=== PATIENT | male | born 1940 | race Caucasian/White ===

== ENCOUNTER 2020-10-18 00:55 | Inpatient (IN) | payer MEDICARE, SELFPAY ==
[2020-10-18 01:24] LABS: Actual Bicarbonate (HCO3a) 22.1 mEq/L (22-28); Analyzer IN Cardio ER; Base Excess (BEa) -0.2 mEq/L (-2.0 to +3.0); CO2 Tension 29.4 mmHg (35.0-45.0); Calcium, Ionized (arterial) 1.14 mmol/L (1.12-1.30); Carboxyhemoglobin (COHb) 0.5 gm% (0.0-3.0); O2 Tension (PaO2), arterial 194.9 mmHg (> 70.0); Potassium - ABG Lab 3.62 mmol/L (3.70-5.30); pH, Arterial 7.49 (7.35-7.45)
[2020-10-18 01:25] LABS: Puncture Site LRA
[2020-10-18] MEDS ORDERED: fentaNYL Citrate/PF 2,000 MCG in Sodium Chloride 0.9% 60 ML IV SCH ×2 (01:30→03:45)
[2020-10-18 02:35] LABS: Bilirubin Negative (Negative); Blood, Urine Negative (Negative); Clarity Clear (Clear); Glucose, Urine (Dipstick) Normal (Negative); Ketone, Urine Trace mg/dL (Negative); Leukocyte Negative Leu/uL (Negative); Nitrite Negative (Negative); Protein, Urine (Dipstick) 20 mg/dL (Neg-Trace); Specific Gravity, Urine 1.045 (1.002-1.036); Urobilinogen Normal mg/dL (Less than 2); pH, Urine 7.5 (5.0-9.0)
[2020-10-18] MEDS ORDERED: Morphine 2 MG/ML VIAL SLOW IVP PRN (03:45)
[2020-10-18] MEDS ORDERED: Propofol 1,000 MG/100 ML VIAL IV PRN (03:45)
[2020-10-18] MEDS ORDERED: Propofol BOLUS 1,000 MG/100 ML VIAL IV PRN (03:45)
[2020-10-18] MEDS ORDERED: Fentanyl BOLUS 250 ML IVPB PRN (03:45)
[2020-10-18] MEDS ORDERED: DISCONTINUE PREVIOUS NARCOTIC PAIN MEDICATIONS AND BENZODIAZEPINES FS SCH (03:45)
[2020-10-18] MEDS ORDERED: Dextrose 5 % And 0.9 % NaCl 1,000 ML IV SCH (04:00)
[2020-10-18 04:15] LABS: SARS-CoV-2 NAA Rapid Test Not Detected (NotDetected)
[2020-10-18 05:10] VITALS: BMI 31.2
[2020-10-18 06:43] LABS: Cardiac Risk 3.3 (Less than 4.5)
[2020-10-18 07:47] LABS: Actual Bicarbonate (HCO3a) 23.8 mEq/L (22-28); Base Excess (BEa) -0.2 mEq/L (-2.0 to +3.0); CO2 Tension 36.9 mmHg (35.0-45.0); Calcium, Ionized (arterial) 1.18 mmol/L (1.12-1.30); Carboxyhemoglobin (COHb) 0.5 gm% (0.0-3.0); Hemoglobin (Hb) 13.3 g/dL (14.0-18.0); O2 Tension (PaO2), arterial 146.7 mmHg (> 70.0); Potassium - ABG Lab 3.44 mmol/L (3.70-5.30); pH, Arterial 7.43 (7.35-7.45)
[2020-10-18 07:48] LABS: ALV-art Gradient 163.675 mmHg (0-20); Puncture Site RRA
--- NOTE | 2020-10-18 07:57 | CT ---
PRELIMINARY REPORT/[facility]/EMERGENCY AFTER HOURS PROCEDURE: This report was discussed with Mervat Santoro RN by Tika Rodriguez on Oct 18, 2020 02:19:00 [employer] WORK[employer]. Addendum electronically signed by Tika Rodriguez on October 18, 2020 2:19:50 AM CUSTOM SHOP WORKER EXAM: CTA Head and Neck with Intravenous Contrast. CT Head without Contrast. CLINICAL HISTORY: THIS IS A STROKE TRANSFER FROM ANOTHER FACILITY. REPEATED SCANS PER NEUROLOGIST//ALL THE IMAGES ARE U NDER THE CTA ANGIO HEAD/ LEVEL 1 STROKE ACTIVATION PT DIAGNOSED WITH OCCULSIONS//PRESENTED INTUB ATED TECHNIQUE: Axial CTA images of the head and neck performed with intravenous contrast. MIP reconstructed images w ere created and reviewed. Axial computed tomography images of the head/brain performed without intravenous contrast. Note: Per PQRS, the description of internal carotid artery percent stenosis, including 0 percent or n ormal exam, is based on [place] Symptomatic Carotid Endarterectomy Trial (NASCET) criteria. CONTRAST: With; ISOVUE 370,100mL COMPARISON: None provided. FINDINGS: CT HEAD: BRAIN: No acute intraparenchymal hemorrhage. No mass lesion. No midline shift or extra-axial collection. 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 VENTRICLES: No hydrocephalus. ORBITS: The orbits are unremarkable. SINUSES AND MASTOIDS: The paranasal sinuses and mastoid air cells are clear. CTA NECK: COMMON CAROTID ARTERIES No significant stenosis. No dissection or occlusion. INTERNAL CAROTID ARTERIES No stenosis by NASCET criteria. No dissection or occlusion. VERTEBRAL ARTERIES There is absence of vertebral flow and the V1, V2, V3, and V4 segments of the left vertebral artery. The right vertebral artery is patent. CTA HEAD: ANTERIOR CEREBRAL ARTERIES No significant stenosis. No occlusion. No aneurysm. MIDDLE CEREBRAL ARTERIES No significant stenosis. No occlusion. No aneurysm. POSTERIOR CEREBRAL ARTERIES No significant stenosis. No occlusion. No aneurysm. BASILAR ARTERY No significant stenosis. No occlusion. No aneurysm. OTHER: SOFT TISSUES No acute finding. No masses or lymphadenopathy. BONES No acute osseous abnormality. Multilevel degenerative disc disease. IMPRESSION: Absence of arterial flow in the V1, V2, V3, and V4 segments of the left vertebral artery concerning f or occlusion. Geographic region of hypodensity in the left cerebellar hemisphere concerning for an acute infarction . ELECTRONICALLY SIGNED BY: Pj Jha MD Oct 18, 2020 2:14:56 AM CUSTOM SHOP WORKER This report is intended for review by the ordering physician only, in accordance of law. If you recei ve this report in error, please call [facility] at [phone]. FINAL REPORT CTA HEAD WITH AND WITHOUT CONTRAST CTA NECK WITH CONTRAST: Axial tomograms obtained through head with and without contrast. Postcontrast images obtained through the head and neck following angio protocol with multiplanar reconstruction and 3D postprocessing. FINDINGS: CT head without contrast shows asymmetric hypodensity in the left cerebellum as noted on the prelimin john report. CTA head shows patent intracranial internal carotid arteries, anterior cerebral arteries, middle cere bral arteries, and posterior cerebral arteries. There is occlusion of the left vertebral artery as noted on the preliminary report. I am in agreement with the preliminary report issued by [facility]. CTA NECK: Common carotid arteries and extracranial internal carotid arteries are patent. I am in agreement with the preliminary report issued by [facility]. POS: OFF
[2020-10-18] MEDS ORDERED: FLU VACC QS2020-21(65YR UP)/PF 240 MCG/0.7 ML SYRINGE IM ONE (09:00)
--- NOTE | 2020-10-18 09:35 | CON ---
DATE OF CONSULTATION: HISTORY OF PRESENT ILLNESS: A 80-year-old gentleman, intubated, on the vent. He was transferred from a tertiary hospital in [place] with an acute mental status change as outlined. 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 His CT head and neck did show a hyperdense area in the cerebellar area, consistent with infarct. I spoke to his granddaughter, they are from [place], states that he has been healthy except for history of hypertension. PAST MEDICAL HISTORY: Colon cancer, stopped treatment a year ago, is not in remission; history of prostate cancer; hypertension. PREVIOUS SURGERIES: Colostomy. Chronic medication includes blood pressure medication only. SOCIAL HISTORY: No alcohol abuse or tobacco abuse. MEDICATIONS: Include apparently 1. Aspirin 81. 2. Aleve. 3. Irbesartan 300. 4. Flomax 0.4. ALLERGIES: NONE. REVIEW OF SYSTEMS: Ten-point negative. PHYSICAL EXAMINATION: GENERAL: He is intubated, on the vent. He is not sedated. VITAL SIGNS: His saturations are 100%, temperature 98, blood pressure is 110/80, respiratory rate 15. CHEST: No wheezing, no crackles. CARDIAC: Normal S1, S2. No gallops. ABDOMEN: Soft. NEUROLOGIC: Unresponsive. Pupils are equal, flaccid. LABORATORY DATA: PO2 is 146, pCO2 is 36, pH 7.43 on a rate of 12, 50%, tidal volume 550. No additional lab was done locally, but lab from previous hospital showed unremarkable values. IMPRESSION: 1. Respiratory failure secondary to acute CVA, posterior circulation. 2. Hypertension, colon cancer, prostate cancer. PLAN: Pulmonary is going to leave the patient intubated until he has a further workup regarding his CVA. Prognosis remains guarded. 45 minutes critical care time. Job ID: [id number]
--- NOTE | 2020-10-18 12:14 | CON ---
NEUROLOGY CONSULTATION DATE OF CONSULTATION: 10/18/2020 REASON FOR CONSULTATION: CVA. HISTORY OF PRESENT ILLNESS: Mr. Elisabet Grant is a 80-year-old male with history significant for hypertension, transferred from [place], [place], for evaluation of stroke. He was last known normal around 1:00. The history is obtained from the patient's family and also by review of the medical records since the patient is intubated at this time. According to the records, he was watching TV and he had a bad headache with slurred speech and right facial droop. His blood pressure was 200 systolic, so decided to bring him to the emergency room for further evaluation. CT angio was performed, which showed possible clot in the basilar artery at the outside emergency room and he has altered mental status with GCS of 6, so he was intubated and started on a Cardene drip, but which was eventually stopped to allow permissive hypertension. He was transferred here to [facility] where a CT angiogram was performed, which shows absence of arterial flow in the V1, V2, V3, and V4 segments of the left vertebral artery, concerning for occlusion and geographical region of hypodensity in the left cerebral hemisphere, consisting of acute infarction. Dr. Murphy was consulted and he did not think the patient is a candidate for neurosurgical intervention. REVIEW OF SYSTEMS: Unobtainable due to the patient being intubated. PAST MEDICAL HISTORY: 1. Colon cancer, stopped treatment a year ago, not in remission. 2. History of prostate cancer. 3. Hypertension. PAST SURGICAL HISTORY: Colostomy. MEDICATIONS: 1. Aspirin. 2. Aleve. 3. Irbesartan. 4. Flomax. SOCIAL HISTORY: The patient lives with family. There is no history of alcohol or illegal drug abuse. ALLERGIES: NO KNOWN DRUG ALLERGIES. PHYSICAL EXAMINATION: VITAL SIGNS: Blood pressure 110/80, pulse 50, respiratory rate 18. GENERAL: The patient is intubated, but has been off sedation for the last 3 to 4 hours per nursing staff. NEUROLOGIC: Cranial nerves; pupils 3 mm, round, and sluggishly responsive to light. No gaze preference. Face symmetric. Tongue midline. Opens eyes spontaneously, but does not track. No roving eye movement seen. Corneals positive. Gag positive. Motor; muscle tone and bulk are normal. Spontaneous movement of the left lower extremity seen and withdraws left upper and lower extremity greater than right upper and lower extremity, right hemiplegia. Cerebellar; could not be performed secondary to the patient being intubated. Gait deferred due to the patient's safety reason. DATA REVIEWED:: I reviewed the head CT, which was consistent with acute CVA in the posterior cerebellar CVA. ASSESSMENT AND PLAN: 80 year old with vertebral occlusion and stroke status post intubation. CTA of the head and neck showed occlusion of the vertebral artery. Neurosurgery consulted and he is not a candidate for neurosurgical intervention. Consider MRI of the brain to assess for acute intracranial process. 2D echo to evaluate for left ventricular ejection fraction. Continue telemetry to rule out arrhythmias. Start aspirin and high-intensity statin for secondary stroke prevention. Continue home medications. Permissive control of blood pressure at this time. Strict control of blood glucose. Hold Eliquis because of risk of hemorrhagic conversion 7 days post CVA onset. PT/OT/speech. EEG to assess mental status to rule out seizures. Prognosis guarded but preserved brain stem reflexes and chcf signs. Chances of functional meaningful recovery are guarded but need to be reassed in the next 24-48 hours. Palliative care team on board. Plan discussed in detail with the patient's 3 family members , Palliative care outreach team member , nursing staff and with the primary attending Dr. Lee. We will continue to follow. Thank you for the consult. Job ID: [id number] [facility]ITAL[facility]
[2020-10-18] MEDS ORDERED: Aspirin 325 MG TAB PER TUBE SCH (14:15)
[2020-10-18] MEDS ORDERED: Enoxaparin Sodium 40 MG/0.4 ML SYRINGE SC SCH (14:15)
--- NOTE | 2020-10-18 14:42 | PDOC.FMACP ---
Advance Care Planning - Problem (1) Palliative care encounter Status: Acute Code(s): Z51.5 - ENCOUNTER FOR PALLIATIVE CARE (2) Acute CVA (cerebrovascular accident) Status: Acute Code(s): I63.9 - CEREBRAL INFARCTION, UNSPECIFIED (3) Respiratory failure requiring intubation Status: Acute Code(s): J96.90 - RESPIRATORY FAILURE, UNSP, UNSP W HYPOXIA OR HYPERCAPNIA (4) Hypertension Status: Acute Code(s): I10 - ESSENTIAL (PRIMARY) HYPERTENSION - Note Participants: family, palliative care Summary: Palliative care introduced Advanced Care Planning with patient , daughter and granddaughters. Short life review. Patient has been to his Samantha over 50 years. No directives were specifically documented. The diagnosis, prognosis and goals of care were discussed. Appropriate forms and documentation to accomplish the goals of care were discussed. All questions were answered. requested to complete consent for DNAR, done placed in chart and order entered. In discussing prognosis the family states that he would not desire long-term intubation, no trach or peg. Understanding of recommendations to see his response and progress over the weekend and to revisit goal of care Wednesday. Emotional support and Therapeutic listening. Communicated with Dr Lee Time Spent (mins): 60
[2020-10-18] MEDS: Sodium Chloride 0.9% 1,000 ML IV SCH ×2 (14:52→23:46)
[2020-10-18] MEDS ORDERED: Iopamidol 370 76% 100 ML VIAL ONE (15:07)
--- NOTE | 2020-10-18 15:37 | PDOC.EEG ---
Neurology EEG Report - Report Report: This EEG was performed using 24 channel GENBAND video digital EEG machine with 24 disc electrodes. This was an extended 2-hour 24 minutes of inpatient video EEG recording. Digital analysis of the EEG was done for Randolph and seizure detection which revealed no abnormalities Background: The posterior background rhythm is is not observed Low amplitude EEG with excessive beta activity intermixed with the background. Hyperventilation: Not performed. Photic stimulation. No response Sleep: No stage change is observed. EEG diagnosis: Absence of posterior background rhythm Clinical interpretation: This EEG is consistent with mild generalized nonspecific cerebral dysfunction.
--- NOTE | 2020-10-18 19:17 | PDOC.EVN ---
Event Note - Event Note Event Note: Chart reviewed, patient seen. Discussed with neurology service. Patient presenting with acute ischemic CVA, currently intubated. His CODE STATUS is DNR. Patient to continue on aspirin and SCDs. Hold off on anticoagulation for 1 week, given acute CVA.
[2020-10-18] MEDS: Famotidine/PF 20 mg/2ml Vial SLOW IVP SCH (20:36)
[2020-10-19 04:13] LABS: Anion Gap 16 mmol/L (10-20); BUN (Urea Nitrogen) 9 mg/dL (8.4-25.7); Calc. Creatinine Clearance 87 mL/min (70-130); Calcium 8.7 mg/dL (7.8-10.44); Carbon Dioxide 23 mmol/L (23-31); Chloride 109 mmol/L (98-107); Glucose 82 mg/dL (83-110); Potassium 3.7 mmol/L (3.5-5.1); Sodium 144 mmol/L (136-145)
[2020-10-19 04:36] LABS: Band 5 % (5-11); Lymphocytes 15 % (21-51); MDiff Complete? YES; Mean Corpuscular HGB CONC 31.3 g/dL (32.0-36.0); Mean Corpuscular Hemoglobin 26.2 pg (27.0-31.0); Mean Corpuscular Volume 83.8 fL (78.0-98.0); Mean Platelet Volume 8.1 fL (7.4-10.4); Monocytes 15 % (0-10); Neutrophil 65 % (42-75); Platelet Count 307 thou/uL (130-400); RBC Distribution Width 15.4 % (11.5-14.5); Red Blood Cell (RBC) Count 4.94 mill/uL (4.70-6.10)
--- NOTE | 2020-10-19 06:55 | HP ---
CHIEF COMPLAINT: Stroke. HISTORY OF PRESENT ILLNESS: Mr. Grant is a 80-year-old male, who has been transferred from [place], [place] for stroke. The patient was last known normal at 1 p.m. yesterday. All information obtained from chart review as the patient arrived intubated and sedated. According to the records, the patient was watching TV, began having a bad headache and slurred speech and right-sided facial droop. His blood pressure was in the 200s systolic. CT angiogram showed possible clot in the basilar artery. At the outside emergency room, the patient had declining mental status and a Monae Coma Scale of 6, he was intubated. Initially, he was started on Cardene drip, but this was stopped to allow for permissive hypertension. PAST MEDICAL HISTORY: As per records, includes colon cancer, colostomy, hypertension, DVT. He is not on anticoagulants as per records. The patient was transferred to our medical facility after neurosurgeon Dr. Murphy accepted the consultation, advised to transfer the patient to our medical facility. The emergency room physician consulted Dr. Murphy, neurosurgeon. Once the patient arrived to the emergency room, he reviewed the case with the ER physician and according to the ER physician, there is no plan for immediate intervention at this point. The patient is going to be admitted today to the critical care unit for further management. PAST MEDICAL HISTORY: As mentioned above in history of present illness. PAST SURGICAL HISTORY: Unknown. The patient does have colostomy. FAMILY HISTORY: Unknown. ALLERGIES: UNKNOWN. HOME MEDICATIONS: See home medication reconciliation form for updated medications. SOCIAL HISTORY: Unknown. REVIEW OF SYSTEMS: Unable to obtain. The patient is intubated and on fentanyl. PHYSICAL EXAMINATION: GENERAL: The patient is intubated and sedated. VITAL SIGNS: Blood pressure is 129/75, pulse is 50, respiratory rate is 14, temperature is 98.1, oxygen saturation is 100% on the ventilator. HEAD AND NECK: Normocephalic, atraumatic. NECK: Supple. CHEST: Fair bilateral air entry. HEART: Irregularly irregular. ABDOMEN: Soft. Bowel sounds present. NEURO: Intubated, sedated, unable to assess. EXTREMITIES: No clubbing, no cyanosis. LABORATORY DATA: CTA of the head and neck as mentioned above in history of present illness. ABG showed a pH of 7.49, pCO2 of 29, and PaO2 of 194 on the ventilator. Rest of the labs from the [facility] were not sent with the patient. Hospital community service officer to call and request the labs. ASSESSMENT: 1. Acute cerebrovascular accident. 2. Basilar artery occlusion? 3. Acute respiratory failure. 4. History of colon cancer. 5. Hypertension. 6. History of deep vein thrombosis. PLAN: 1. Admit to critical care unit. 2. Neurosurgeon was immediately consulted by ED physician, they discussed the case and as per ER physician, no plan for immediate intervention. 3. Continue full ventilator support. 4. Allow for permissive hypertension. 5. Consult Neurology in the a.m. for evaluation and further recommendations. 6. Reconcile home medications. 7. DVT prophylaxis as appropriate. 8. Consult Pulmonary/Pressurization Mechanic for critical care management. 9. Expected length of stay, 2 midnights or more. 10. The patient's condition is critical. 11. Prognosis is poor. Job ID: [id number]
[2020-10-19 07:24] LABS: Actual Bicarbonate (HCO3a) 21.3 mEq/L (22-28); Base Excess (BEa) -3.3 mEq/L (-2.0 to +3.0); Calcium, Ionized (arterial) 1.19 mmol/L (1.12-1.30); Carboxyhemoglobin (COHb) 0.6 gm% (0.0-3.0); Hemoglobin (Hb) 13.3 g/dL (14.0-18.0); O2 Tension (PaO2), arterial 121.6 mmHg (> 70.0); Potassium - ABG Lab 3.42 mmol/L (3.70-5.30); pH, Arterial 7.38 (7.35-7.45)
[2020-10-19] MEDS: Sodium Chloride 0.9% 1,000 ML IV SCH ×2 (07:43→15:25)
[2020-10-19 07:45] LABS: Puncture Site RRA
--- NOTE | 2020-10-19 08:17 | RAD ---
Chest one view HISTORY: Intubation. COMPARISON: 10/17/2020. FINDINGS: Cardiac silhouette is magnified by projection. Pulmonary vasculature upper limits of normal and accentuated by shallow inspiration. Mediastinum is midline. Prominence of the aortic knob and upper mediastinum accentuated by AP techniq ue and shallow inspiration. Tip of an endotracheal catheter overlies the thoracic inlet. Nasogastric tube descends to the abdomen. Right subclavian Port-A-Cath in place. Subtle widespread slightly patchy areas of parenchymal opacity. No lobar consolidation or evidence of pneumothorax. IMPRESSION : Endotracheal catheter is in good radiographic position. Mild pulmonary vascular congestion.
[2020-10-19] MEDS: Aspirin 325 MG TAB PER TUBE SCH (08:19)
[2020-10-19] MEDS: Enoxaparin Sodium 40 MG/0.4 ML SYRINGE SC SCH (08:19)
[2020-10-19] MEDS: Famotidine/PF 20 mg/2ml Vial SLOW IVP SCH ×2 (08:20→19:43)
--- NOTE | 2020-10-19 09:48 | PRG ---
DATE OF SERVICE: SUBJECTIVE: Elisabet Grant remains on the vent, unresponsive. OBJECTIVE: VITAL SIGNS: Temperature 99 pulse 41, respirations are 27, blood pressure 160/88, intubated on the vent on 40%, sats are adequate. I's and O's have been good. GENERAL: He is unresponsive. CHEST: No wheezing, no crackles. CARDIAC: Normal S1, S2. No masses. LABORATORY DATA: White count platelet count normal. PO2 121, pCO2 40%. Renal function is normal. IMPRESSION: Status post posterior circulation, cerebrovascular accident, respiratory failure, and encephalopathy. PLAN: Pulmonary parker comfort care, start nutrition tomorrow. Avoid sedation if possible. One-half hour of critical care time. Job ID: [id number]
--- NOTE | 2020-10-19 12:31 | PDOC.HOSPP ---
- Subjective Encounter Date: 10/19/20 Encounter Time: 12:30 Subjective: This is an unfortunate 80-year-old patient who was admitted to the hospital after he developed encephalopathy. He was found to have vertebral artery occlusion and evidence of acute CVA. Currently he is intubated on my exam and cannot provide any history. No family at the bedside when I visited. The patient is being followed by neurology services. Right now his vitals are relatively stable. He remains on a ventilator which is being managed by the pulmonary/critical care services. - Objective Vital Signs & Weight: Vital Signs (12 hours) Temp Pulse Resp Pulse Ox 10/19/20 12:00 14 10/19/20 10:16 60 10/19/20 10:00 15 10/19/20 08:15 100 10/19/20 08:00 99.0 F 15 10/19/20 07:46 41 L 10/19/20 06:00 14 10/19/20 04:00 99.3 F 16 10/19/20 02:00 15 Weight Admit Weight 230 lb Weight 230 lb 9.656 oz Most Recent Monitor Data Heart Rate from ECG 47 NIBP 158/82 NIBP BP-Mean 107 Respiration from ECG 16 SpO2 100 I&O: 10/18/20 10/19/20 10/20/20 06:59 06:59 06:59 Intake Total 128 2374 Output Total 165 1438 110 Balance -37 936 -110 Result Diagrams: 10/19/20 03:10 10/19/20 03:10 Radiology Reviewed by me: Yes EKG Reviewed by me: Yes Hospitalist ROS - Review of Systems ROS unobtainable: due to endotracheal tube Constitutional: reports: malaise - Medication Medications: Active Medications Generic Name Dose Route Start Last Admin Trade Name Freq PRN Reason Stop Dose Admin Aspirin 325 mg 10/19/20 09:00 10/19/20 08:19 Aspirin 325 Mg Tab PER TUBE 325 mg DAILY LYDIA Administration Enoxaparin Sodium 40 mg 10/19/20 09:00 10/19/20 08:19 Enoxaparin Sodium 40 Mg/0.4 Ml Syringe SC 40 mg 0900 LYDIA Administration Famotidine 20 mg 10/18/20 21:00 10/19/20 08:20 Famotidine/Pf 20 Mg/2ml Vial SLOW IVP 20 mg BID LYDIA Administration Sodium Chloride 1,000 mls @ 125 mls/hr 10/18/20 14:15 10/19/20 07:43 Normal Saline 0.9% IV 1,000 mls .Q8H LYDIA Administration - Exam General Appearance: NAD ENT: normocephalic atraumatic, no oropharyngeal lesions, moist mucosa Neck: supple, symmetric, no JVD, no thyromegaly, no lymphadenopathy Heart: RRR, no murmur, no gallops, no rubs, normal peripheral pulses Respiratory: CTAB, no wheezes, no rales, normal chest expansion Gastrointestinal: soft, non-tender, non-distended, normal bowel sounds, no pa lpable masses, no hepatomegaly, no splenomegaly, no bruit, no guarding Extremities: no cyanosis, no clubbing Neurological - other findings: unable to examine as he is intubated Psychiatric: somnolent Hosp A/P (1) Vertebral artery occlusion Code(s): I65.09 - OCCLUSION AND STENOSIS OF UNSPECIFIED VERTEBRAL ARTERY Status: Acute Qualifiers: Laterality: right Qualified Code(s): I65.01 - Occlusion and stenosis of right vertebral artery Plan: Probably the cause of the acute CVA. Per neurosurgery he is not a candidate for surgical intervention at this time. (2) Acute CVA (cerebrovascular accident) Code(s): I63.9 - CEREBRAL INFARCTION, UNSPECIFIED Status: Acute Plan: Stroke evaluation is ongoing. We appreciate neurologist. (3) Hypertension Code(s): I10 - ESSENTIAL (PRIMARY) HYPERTENSION Status: Acute Qualifiers: Hypertension type: essential hypertension Qualified Code(s): I10 - Essential (primary) hypertension (4) Respiratory failure requiring intubation Code(s): J96.90 - RESPIRATORY FAILURE, UNSP, UNSP W HYPOXIA OR HYPERCAPNIA Status: Acute Plan: He remains intubated and mechanically ventilated. - Plan old records reviewed/req, PT/OT, respiratory therapy, DVT proph w/heparin Consults: Palliative Care
[2020-10-19] MEDS ORDERED: Enalaprilat Dihydrate 1.25 MG/ML VIAL SLOW IVP PRN (18:00)
[2020-10-20] MEDS: Sodium Chloride 0.9% 1,000 ML IV SCH ×3 (00:24→12:06)
[2020-10-20 04:14] LABS: Anion Gap 17 mmol/L (10-20); BUN (Urea Nitrogen) 12 mg/dL (8.4-25.7); Calc. Creatinine Clearance 100 mL/min (70-130); Calcium 8.4 mg/dL (7.8-10.44); Carbon Dioxide 20 mmol/L (23-31); Chloride 110 mmol/L (98-107); Glucose 74 mg/dL (83-110); Potassium 3.6 mmol/L (3.5-5.1); Sodium 143 mmol/L (136-145)
[2020-10-20 05:21] LABS: Band 28 % (5-11); Hemoglobin 13.3 g/dL (14.0-18.0); Lymphocytes 11 % (21-51); MDiff Complete? YES; Mean Corpuscular HGB CONC 32.1 g/dL (32.0-36.0); Mean Corpuscular Hemoglobin 27.2 pg (27.0-31.0); Mean Corpuscular Volume 84.7 fL (78.0-98.0); Mean Platelet Volume 7.9 fL (7.4-10.4); Monocytes 6 % (0-10); Neutrophil 55 % (42-75); Platelet Count 282 thou/uL (130-400); RBC Distribution Width 15.1 % (11.5-14.5); Red Blood Cell (RBC) Count 4.89 mill/uL (4.70-6.10); White Blood Cell (WBC) Count 9.5 thou/uL (4.8-10.8)
[2020-10-20 07:43] LABS: Actual Bicarbonate (HCO3a) 18.8 mEq/L (22-28); Base Excess (BEa) -6.4 mEq/L (-2.0 to +3.0); CO2 Tension 36.5 mmHg (35.0-45.0); Carboxyhemoglobin (COHb) 0.8 gm% (0.0-3.0); Hemoglobin (Hb) 13.7 g/dL (14.0-18.0); Potassium - ABG Lab 3.45 mmol/L (3.70-5.30); pH, Arterial 7.33 (7.35-7.45)
[2020-10-20 08:12] LABS: ALV-art Gradient 91.575 mmHg (0-20); Puncture Site RRA
[2020-10-20] MEDS: Aspirin 325 MG TAB PER TUBE SCH (08:24)
[2020-10-20] MEDS: Enoxaparin Sodium 40 MG/0.4 ML SYRINGE SC SCH (08:24)
[2020-10-20] MEDS: Famotidine/PF 20 mg/2ml Vial SLOW IVP SCH ×2 (08:24→20:57)
--- NOTE | 2020-10-20 08:38 | RAD ---
EXAM: Chest one view: HISTORY: Respiratory insufficiency COMPARISON: 10/19/2020 FINDINGS: Life support tubes in place and stable. Atherosclerosis of the aorta with ectasia. Heart size: Within normal limits. Lungs: Minimal pleural and parenchymal opacity changes in the left base and costophrenic angle, stabl e No evidence for confluent lobar pneumonia, significant pleural effusion, acute edema, or pneumothorax , or other significant acute process. IMPRESSION: Stable exam. Continued short-term follow-up.
--- NOTE | 2020-10-20 09:55 | PRG ---
DATE OF SERVICE: 10/20/2020 SUBJECTIVE: Jennie Grant remains intubated in the vent, unresponsive. Unclear what the family has in mind. He was started on fentanyl, apparently is back in the vent. OBJECTIVE: VITAL SIGNS: Temperature 99, pulse 71, respiratory rate 14, sats are 100%, blood pressure 150/86. CHEST: No wheezing. No crackles. CARDIAC: Normal S1, S2. No masses. LABORATORY DATA: White count 9000, H and H 13 and 41, platelet count 282. PO2 is 148, pCO2 of , 40%. Lytes are normal. IMPRESSION: Status post posterior circulation cerebrovascular accident, respiratory failure. PLAN: He is a DNR. Family to decide comfort care, extubation etc. Pulmonary is going to follow while in the ICU on the vent. One-half hour of critical care time. Job ID: [id number]
--- NOTE | 2020-10-20 16:41 | PDOC.HOSPP ---
- Subjective Encounter Date: 10/20/20 Subjective: Patient remains on the ventilator today during my visit. 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 No family at the bedside when I visited. His prognosis appears to be guarded at best. - Objective Vital Signs & Weight: Vital Signs (12 hours) Temp Pulse Resp 10/20/20 14:44 53 L 10/20/20 12:00 98.8 F 10/20/20 10:35 67 10/20/20 08:13 71 10/20/20 08:00 98.5 F 10/20/20 06:00 14 Weight Admit Weight 230 lb Weight 230 lb 9.656 oz Most Recent Monitor Data Heart Rate from ECG 76 NIBP 154/87 NIBP BP-Mean 109 Respiration from ECG 18 SpO2 100 I&O: 10/19/20 10/20/20 10/21/20 06:59 06:59 06:59 Intake Total 2374 3035.8 Output Total 1438 631 290 Balance 936 2404.8 -290 Result Diagrams: 10/20/20 03:26 10/20/20 03:26 Radiology Reviewed by me: Yes EKG Reviewed by me: Yes Hospitalist ROS - Review of Systems ROS unobtainable: due to endotracheal tube Constitutional: reports: weakness, malaise - Medication Medications: Active Medications Generic Name Dose Route Start Last Admin Trade Name Freq PRN Reason Stop Dose Admin Aspirin 325 mg 10/19/20 09:00 10/20/20 08:24 Aspirin 325 Mg Tab PER TUBE 325 mg DAILY LYDIA Administration Enoxaparin Sodium 40 mg 10/19/20 09:00 10/20/20 08:24 Enoxaparin Sodium 40 Mg/0.4 Ml Syringe SC 40 mg 0900 LYDIA Administration Famotidine 20 mg 10/18/20 21:00 10/20/20 08:24 Famotidine/Pf 20 Mg/2ml Vial SLOW IVP 20 mg BID LYDIA Administration Sodium Chloride 1,000 mls @ 75 mls/hr 10/20/20 09:25 10/20/20 12:06 Normal Saline 0.9% IV 1,000 mls .[id number] LYDIA Administration - Exam General Appearance: NAD, ill appearing ENT: normocephalic atraumatic, no oropharyngeal lesions Neck: supple, symmetric, no JVD, no thyromegaly, no lymphadenopathy Heart: RRR, no murmur, no gallops, no rubs, normal peripheral pulses Respiratory: CTAB, no wheezes, no rales, no ronchi, normal chest expansion Gastrointestinal: soft, non-tender, non-distended, normal bowel sounds, no palpable masses Neurological - other findings: unable to examine as he is intubated. Hosp A/P (1) Vertebral artery occlusion Code(s): I65.09 - OCCLUSION AND STENOSIS OF UNSPECIFIED VERTEBRAL ARTERY Status: Acute Qualifiers: Laterality: right Qualified Code(s): I65.01 - Occlusion and stenosis of right vertebral artery Plan: Patient was not a candidate for surgery when he arrived here. Continue routine stroke evaluations. (2) Acute CVA (cerebrovascular accident) Code(s): I63.9 - CEREBRAL INFARCTION, UNSPECIFIED Status: Acute Plan: Involving the posterior circulation. We appreciate neurologist ongoing care. His prognosis appears to be guarded at best. (3) Hypertension Code(s): I10 - ESSENTIAL (PRIMARY) HYPERTENSION Status: Acute Qualifiers: Hypertension type: essential hypertension Qualified Code(s): I10 - Essential (primary) hypertension (4) Respiratory failure requiring intubation Code(s): J96.90 - RESPIRATORY FAILURE, UNSP, UNSP W HYPOXIA OR HYPERCAPNIA Status: Acute Plan: He remains intubated at this time. - Plan old records reviewed/req, plan discussed w/ family, PT/OT, administrator social welfare, speech therapy, respiratory therapy, incentive spirometry
[2020-10-20] MEDS: Lorazepam 2 MG/ML VIAL SLOW IVP PRN (17:52)
[2020-10-21 04:05] LABS: Anion Gap 18 mmol/L (10-20); BUN (Urea Nitrogen) 11 mg/dL (8.4-25.7); Calc. Creatinine Clearance 113 mL/min (70-130); Calcium 8.2 mg/dL (7.8-10.44); Carbon Dioxide 16 mmol/L (23-31); Chloride 112 mmol/L (98-107); Glucose 79 mg/dL (83-110); Potassium 4.1 mmol/L (3.5-5.1); Sodium 142 mmol/L (136-145)
[2020-10-21 04:43] LABS: Band 23 % (5-11); Eosinophils 2 % (0-10); Hemoglobin 12.3 g/dL (14.0-18.0); Lymphocytes 16 % (21-51); MDiff Complete? YES; Mean Corpuscular HGB CONC 31.1 g/dL (32.0-36.0); Mean Corpuscular Hemoglobin 25.9 pg (27.0-31.0); Mean Corpuscular Volume 83.2 fL (78.0-98.0); Monocytes 14 % (0-10); Neutrophil 45 % (42-75); Platelet Count 296 thou/uL (130-400); Red Blood Cell (RBC) Count 4.76 mill/uL (4.70-6.10); White Blood Cell (WBC) Count 4.8 thou/uL (4.8-10.8)
[2020-10-21] MEDS: Sodium Chloride 0.9% 1,000 ML IV SCH ×2 (06:13→11:59)
[2020-10-21 07:48] VITALS: BP 149/87
[2020-10-21 07:57] LABS: Actual Bicarbonate (HCO3a) 17.5 mEq/L (22-28); Base Excess (BEa) -7.2 mEq/L (-2.0 to +3.0); CO2 Tension 33.1 mmHg (35.0-45.0); Calcium, Ionized (arterial) 1.22 mmol/L (1.12-1.30); Carboxyhemoglobin (COHb) 0.7 gm% (0.0-3.0); Potassium - ABG Lab 3.62 mmol/L (3.70-5.30); pH, Arterial 7.34 (7.35-7.45)
--- NOTE | 2020-10-21 08:07 | RAD ---
PORTABLE CHEST: HISTORY: CCU followup on ventilator. COMPARISON: 10/20/2020. FINDINGS: ET tube and NG tube are again noted. Cardiomegaly and mild vascular engorgement. Small effusions. Poor inspiration limits evaluation. No focal consolidation or infiltrate. No evidence of acute galarza ge, although poor inspiration limits exam. POS: AGW
[2020-10-21 08:30] LABS: ALV-art Gradient 51.175 mmHg (0-20); Puncture Site LRA
[2020-10-21] MEDS: Enoxaparin Sodium 40 MG/0.4 ML SYRINGE SC SCH (08:31)
[2020-10-21] MEDS: Aspirin 325 MG TAB PER TUBE SCH (08:37)
[2020-10-21] MEDS: Famotidine/PF 20 mg/2ml Vial SLOW IVP SCH (08:37)
--- NOTE | 2020-10-21 09:32 | PRG ---
DATE OF SERVICE: 10/21/2020 SUBJECTIVE: Jennie Grant remains intubated in the vent. No sedation and remains unresponsive. OBJECTIVE: HEENT: Pupils are equal and reactive. VITAL SIGNS: Temperature 99, pulse 73, blood pressure 179/100, respirations 20, saturation are 98% to 99%. I's and O's are even. CHEST: No wheezing. No crackles. CARDIAC: Normal S1 and S2. No gallops. ABDOMEN: No masses. LABORATORY DATA: White count 4000, hemoglobin and hematocrit are 12 and 39, platelet count normal. His chest x-ray is normal. Lytes are normal. PO2 is 157, pCO2 is 50, pH 7.34. IMPRESSION: Respiratory failure; cerebrovascular accident, posterior circulation; and encephalopathy. PLAN: He is clearly not weanable. I discussed with his . He is a DNR. They are in the process of considering extubation and comfort care. Palliative Care will be consulted. One-half hour of critical care time. Job ID: [id number]
--- NOTE | 2020-10-21 10:16 | PDOC.PALPN ---
Palliative Progress Note - Subjective Intubated, mechanical ventilation. Non responsive, family at bedside. - Objective Vital Signs: Vital Signs - Most Recent Temp Pulse Resp BP Pulse Ox 99.0 F 67 17 149/87 H 100 10/21/20 07:00 10/21/20 07:46 10/21/20 08:00 10/21/20 07:46 10/21/20 07:05 - Physical Exam Constitutional: encephalitic, ill appearing HEENT: moist MMs, sclera anicteric Respiratory: no wheezing, diminished lung sound Cardiovascular: RRR Gastrointestinal: soft, non-tender, positive bowel sounds Genitourinary: steiner catheter Musculoskeletal: no cyanosis, no clubbing Deviation from normal: no purposeful movement Skin: cap refill <2 seconds, no lesions, no rash Deviation from normal: non responsive, encephalopathic - Assessment (1) Palliative care encounter Code(s): Z51.5 - ENCOUNTER FOR PALLIATIVE CARE Current Visit: Yes Status: Acute (2) Acute CVA (cerebrovascular accident) Code(s): I63.9 - CEREBRAL INFARCTION, UNSPECIFIED Current Visit: Yes Status: Acute (3) Respiratory failure requiring intubation Code(s): J96.90 - RESPIRATORY FAILURE, UNSP, UNSP W HYPOXIA OR HYPERCAPNIA Current Visit: Yes Status: Acute (4) Hypertension Code(s): I10 - ESSENTIAL (PRIMARY) HYPERTENSION Current Visit: Yes Status: Acute Qualifiers: Hypertension type: essential hypertension Qualified Code(s): I10 - Essential (primary) hypertension - Plan Plan: Family discussion in relation to Goal of Care. Wishing to withdraw care, desire to not pursue hospice at this time, but will reconsider post extubation. relays that Mr Grant would not desire to be intubated or go to "rehab". Communicated with Dr Cohen. Spiritual care notified. Comfort measures placed. [50] minutes spent on this encounter with >50% of the time in counseling and coordination of care. - ROS Non Response: due to endotracheal tube, due to mental status
[2020-10-21] MEDS ORDERED: Lorazepam 2 MG/ML VIAL SLOW IVP PRN (10:24)
[2020-10-21] MEDS ORDERED: Atropine Sulfate 1% Ophth Soln 5 ml Bottle PO PRN (11:12)
[2020-10-21] MEDS ORDERED: Scopolamine 1.5 mg/72 hour Patch TD SCH (11:15)
[2020-10-21] MEDS: Morphine 4 MG/ML VIAL SLOW IVP PRN ×7 (11:21→13:56)
[2020-10-21 12:06] VITALS: TEMP 98.4
[2020-10-21] MEDS ORDERED: Scopolamine 1.5 mg/72 hour Patch TOP SCH (12:15)
[2020-10-21] MEDS: Lorazepam 2 MG/ML VIAL SLOW IVP PRN (12:42)
--- NOTE | 2020-10-21 12:50 | PDOC.HOSPP ---
- Subjective Encounter Date: 10/21/20 Encounter Time: 12:48 Subjective: I met with family at the bedside this morning. They have elected for the patient to be terminally extubated as they do not want him to be on the vent. Palliative care team also met with them and they agreed that the patient should be extubated. He will be terminally weaned today. - Objective Vital Signs & Weight: Vital Signs (12 hours) Temp Pulse Resp BP Pulse Ox 10/21/20 12:00 98.4 F 10/21/20 10:00 15 10/21/20 08:00 17 10/21/20 07:46 67 149/87 H 10/21/20 07:05 100 10/21/20 07:00 99.0 F 10/21/20 06:00 17 10/21/20 04:00 16 10/21/20 03:00 98.8 F 10/21/20 02:00 16 Weight Admit Weight 230 lb Weight 230 lb 9.656 oz Most Recent Monitor Data Heart Rate from ECG 105 NIBP 135/79 NIBP BP-Mean 97 Respiration from ECG 32 SpO2 95 I&O: 10/20/20 10/21/20 10/22/20 06:59 06:59 06:59 Intake Total 3035.8 1928 0 Output Total 631 990 310 Balance 2404.8 938 -310 Result Diagrams: 10/21/20 Unknown 10/21/20 Unknown Radiology Reviewed by me: Yes EKG Reviewed by me: Yes Hospitalist ROS - Review of Systems ROS unobtainable: due to endotracheal tube Constitutional: reports: weakness, malaise - Medication Medications: Active Medications Generic Name Dose Route Start Last Admin Trade Name Freq PRN Reason Stop Dose Admin Aspirin 325 mg 10/19/20 09:00 10/21/20 08:37 Aspirin 325 Mg Tab PER TUBE 325 mg DAILY LYDIA Administration Enoxaparin Sodium 40 mg 10/19/20 09:00 10/21/20 08:31 Enoxaparin Sodium 40 Mg/0.4 Ml Syringe SC 40 mg 0900 LYDIA Administration Famotidine 20 mg 10/18/20 21:00 10/21/20 08:37 Famotidine/Pf 20 Mg/2ml Vial SLOW IVP 20 mg BID LYDIA Administration Sodium Chloride 1,000 mls @ 75 mls/hr 10/20/20 09:25 10/21/20 11:59 Normal Saline 0.9% IV Not Given .[id number] LYDIA Lorazepam 2 mg 10/18/20 03:45 10/21/20 12:42 Lorazepam 2 Mg/Ml Vial SLOW IVP 11/17/20 03:45 2 mg Q1H PRN Administration Breakthrough agitation Lorazepam 2 mg 10/21/20 10:24 10/21/20 10:47 Lorazepam 2 Mg/Ml Vial SLOW IVP 2 mg Q2H PRN Administration Anxiety/Agitation Morphine Sulfate 2 mg 10/18/20 03:45 10/21/20 10:46 Morphine 2 Mg/Ml Vial SLOW IVP 11/17/20 03:45 2 mg Q1H PRN Administration Breakthrough Pain/Agitation Morphine Sulfate 4 mg 10/21/20 10:22 10/21/20 12:41 Morphine 4 Mg/Ml Vial SLOW IVP 4 mg Q15MIN PRN Administration Pain Scopolamine 3 mg 10/21/20 11:15 10/21/20 11:22 Scopolamine 1.5 Mg/72 Hour Patch TD 3 mg Q3D LYDIA Administration Scopolamine 3 mg 10/21/20 12:15 10/21/20 12:43 Scopolamine 1.5 Mg/72 Hour Patch TOP Not Given Q3D LYDIA Sodium Chloride 10 ml 10/18/20 01:46 10/21/20 08:41 Flush - Normal Saline 10 Ml Syringe IVF 10 ml PRN PRN Administration Saline Flush - Exam General Appearance: NAD, ill appearing ENT: dry oral mucosa Neck: supple, symmetric Heart: RRR, no murmur Respiratory: CTAB, no wheezes, no rales Gastrointestinal: soft, non-tender, non-distended, normal bowel sounds Neurological - other findings: UNABLE TO FULLY ASSESS HE IS INTUBATED Musculoskeletal: no muscle wasting Psychiatric: somnolent, lethargic Hosp A/P (1) Vertebral artery occlusion Code(s): I65.09 - OCCLUSION AND STENOSIS OF UNSPECIFIED VERTEBRAL ARTERY Status: Acute Qualifiers: Laterality: right Qualified Code(s): I65.01 - Occlusion and stenosis of right vertebral artery (2) Acute CVA (cerebrovascular accident) Code(s): I63.9 - CEREBRAL INFARCTION, UNSPECIFIED Status: Acute Plan: Patient suffered a bad vertebral occlusions stroke. He is minimally responsive (3) Hypertension Code(s): I10 - ESSENTIAL (PRIMARY) HYPERTENSION Status: Acute Qualifiers: Hypertension type: essential hypertension Qualified Code(s): I10 - Essential (primary) hypertension (4) Respiratory failure requiring intubation Code(s): J96.90 - RESPIRATORY FAILURE, UNSP, UNSP W HYPOXIA OR HYPERCAPNIA Status: Acute - Plan old records reviewed/req, plan discussed w/ family
--- NOTE | 2020-10-21 15:51 | PDOC.PALFU ---
Palliative Care Follow-up Note Palliative care will sign off as patient is transitioning to Hospice care.
== END 2020-10-21 16:15 | disposition expired | DRG 64 ==
LOC: ERS 00:55 → CCU 01:54 → ONC 10-21 15:40
PROVIDERS: ADMIT Internal Medicine; ATTEND Hospitalist
PROC: 0BH17EZ Insertion of Endotracheal Airway into Trachea, Via Natural or Artificial Opening (ICD-10-PCS; principal; 2020-10-18)
PROC: 5A1945Z Respiratory Ventilation, 24-96 Consecutive Hours (ICD-10-PCS; 2020-10-18)
DX: I63.212 Cerebral infarction due to unspecified occlusion or stenosis of left vertebral artery (principal); J96.00 Acute respiratory failure, unspecified whether with hypoxia or hypercapnia; I16.1 Hypertensive emergency; G93.49 Other encephalopathy; G81.91 Hemiplegia, unspecified affecting right dominant side; R29.740 NIHSS score 40; Z66 Do not resuscitate; Z51.5 Encounter for palliative care; Z23 Encounter for immunization; Z20.828 Contact with and (suspected) exposure to other viral communicable diseases; I10 Essential (primary) hypertension; G93.89 Other specified disorders of brain; R47.81 Slurred speech; R29.810 Facial weakness; I65.1 Occlusion and stenosis of basilar artery; Z79.82 Long term (current) use of aspirin; Z79.899 Other long term (current) drug therapy; Z78.1 Physical restraint status; Z93.3 Colostomy status; Z85.038 Personal history of other malignant neoplasm of large intestine; Z85.46 Personal history of malignant neoplasm of prostate; R47.01 Aphasia; Z86.718 Personal history of other venous thrombosis and embolism; Z79.1 Long term (current) use of non-steroidal anti-inflammatories (NSAID); Z79.01 Long term (current) use of anticoagulants
CPT/HCPCS: 36415; 36416; 36600; 51702; 70496; 70498; 71045; 80048; 80061; 81003; 82805; 85025; 87040; 87070; 87086; 87205; 94002; 94003; 95712; 95819; 95957; 96365; 96366; J1650; J2060; J2270; J3010; J3490; Q9967; S0028; U0002